=== PATIENT | female | born 1985 | race Caucasian/White ===

== ENCOUNTER 2017-06-21 15:55 | Emergency (ER) | payer OTHER ==
[~2017-06-21] VITALS: Ht 170.2 cm; Wt 58.3 kg
[2017-06-21 17:05] LABS: INFLUENZA A NONE DETECTED (NONE DETECT); INFLUENZA B NONE DETECTED (NONE DETECT)
[2017-06-21] MEDS ORDERED: PREDNISONE50 MG PO (17:28)
[2017-06-21] MEDS ORDERED: ZPAK PO (17:28)
[2017-06-21] MEDS ORDERED: PROAIR HFA108 MCG/AC PO (17:28)
[2017-06-21 17:33] VITALS: BP 123/61
== END 2017-06-21 17:35 | disposition home or self-care (01) | DRG 203 ==
LOC: ED 15:55
PROVIDERS: Family Medicine
DX: J40 Bronchitis, not specified as acute or chronic (principal); F17.210 Nicotine dependence, cigarettes, uncomplicated; R09.81 Nasal congestion; R07.89 Other chest pain; R09.89 Other specified symptoms and signs involving the circulatory and respiratory systems